=== PATIENT | female | born 1955 | race American Indian/Alaskan Native ===

== ENCOUNTER 2018-02-27 09:23 | Emergency (ER) | payer MEDICAID, OTHER ==
[2018-02-27 09:34] VITALS: BMI 27.8
[2018-02-27 09:51] VITALS: TEMP 98.3; O2SAT 100
--- NOTE | 2018-02-27 10:21 | ED PDOC ---
Arrival/HPI - General Chief Complaint: Groin Pain Time Seen by Provider: 02/27/18 09:55 Historian: Patient - History of Present Illness Narrative History of Present Illness (Text): 02/27/18 10:22 A 62 year old female, with no significant past medical history, presents to the emergency department complaining of right flank pain radiating to groin region for 1 month. 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 Patient denies any fever, chest pain, shortness of breath, change in bowels, or any other complaints at this time. Also, patient mentions having fibroid tumor removed in 2006, and had no post-op complications. PMD: Dr. Bhavin Ramirez Time/Duration: Other (1 month) Symptom Onset: Sudden Symptom Course: Unchanged Quality: Aching, Stabbing Severity Level: 3 Activities at Onset: Rest, Sleeping Context: Sitting, Home Past Medical History - Provider Review Nursing Documentation Reviewed: Yes - Travel History Have you recently traveled outside [place] w/in the past 3 mons?: No - Infectious Disease Hx of Infectious Diseases: None - Reproductive Menopause: Yes Family/Social History - Physician Review Nursing Documentation Reviewed: Yes Family/Social History: No Known Family HX Allergies/Home Meds Allergies/Adverse Reactions: Allergies Penicillins Allergy (Verified 02/28/18 08:58) RASH Home Medications: Home Meds Medication Instructions Recorded Confirmed No Known Home Med 02/28/18 02/28/18 Review of Systems - Physician Review All systems were reviewed & negative as marked: Yes - Review of Systems Constitutional: Fatigue. absent: Fevers Eyes: Normal Respiratory: Normal. absent: SOB Cardiovascular: Normal. absent: Chest Pain Gastrointestinal: Abdominal Pain, Appetite Changes Genitourinary Female: Other (brown colored urine). absent: Urine Output Changes Musculoskeletal: Back Pain, Other (right flank pain radiating down to groin region; patient also experiencing leg pain however this is due to varicosity which patient has had for a long time.) Skin: Normal Neurological: Normal Endocrine: Normal Hemo/Lymphatic: Normal Psychiatric: Normal Physical Exam Vital Signs Reviewed: Yes Vital Signs Temp Pulse Resp BP Pulse Ox 02/27/18 14:26 77 18 145/66 100 02/27/18 13:23 80 17 179/79 H 100 02/27/18 09:48 98.3 F 82 16 162/87 H 100 Temperature: Afebrile Blood Pressure: Hypertensive Pulse: Regular Respiratory Rate: Normal Appearance: Positive for: Well-Appearing Pain Distress: None Mental Status: Positive for: Alert and Oriented X 3 - Systems Exam Head: Present: Atraumatic, Normocephalic Pupils: Present: PERRL Extroacular Muscles: Present: EOMI Respiratory/Chest: Present: Clear to Auscultation, Good Air Exchange. No: Respiratory Distress, Accessory Muscle Use Cardiovascular: Present: Regular Rate and Rhythm, Normal S1, S2. No: Murmurs Abdomen: Present: Normal Bowel Sounds. No: Tenderness, Distention, Peritoneal Signs Back: Present: Normal Inspection, Other (right flank deep pain, not palpated.). No: CVA Tenderness Upper Extremity: Present: Normal Inspection. No: Cyanosis, Edema Lower Extremity: Present: Normal Inspection. No: Edema Neurological: Present: GCS=15, CN II-XII Intact, Speech Normal Skin: Present: Warm, Dry, Normal Color. No: Rashes Psychiatric: Present: Alert, Oriented x 3, Normal Insight, Normal Concentration Medical Decision Making ED Course and Treatment: 02/27/18 10:24 Impression: 62 year old female with right flank pain radiating to groin region. Physical exam shows no CVA tenderness to back, deep right flank pain not palpated. Differential Diagnosis included but are not limited to: UTI vs. Renal Stone vs organ mass Plan: -- UTI and renal stone workup -- Labs -- CT -- Reassess and disposition Progress Notes: IMPRESSION of CT: There is a large hypodense lesion in the left lobe of the liver measuring 5.9 cm AP x 4.3 cm width by 3.5 cm in height. MRI with and without contrast is recommended for evaluation of possible hepatic malignancy. 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; another CXR revealed no active dz] Case discussed with Dr Mckenzie and he evaluated her at bedside and advised need to admit however pt declined as she was not prepared to stay overnight Pt signed out AMA and will return prepared to stay next day VSS on dc and ambulated well out of the ED - Lab Interpretations Lab Results: 02/27/18 11:25 02/27/18 11:25 Lab Results 02/27/18 11:30: Urine Color Yellow, Urine Appearance Clear, Urine pH 7.5, Ur Specific [place] 1.015, Urine Protein Negative, Urine Glucose (UA) Negative, Urine Ketones Negative, Urine Blood Negative, Urine Nitrate Negative, Urine Bilirubin Negative, Urine Urobilinogen 0.2, Ur Leukocyte Esterase Negative 02/27/18 11:25: Sodium 141, Potassium 4.3, Chloride 104, Carbon Dioxide 28, Anion Gap 13, BUN 10, Creatinine 0.7, Est GFR ( Amer) > 60, Est GFR (Non- Af Amer) > 60, Random Glucose 93, Calcium 9.8, Total Bilirubin 0.5, AST 24, ALT 27, Alkaline Phosphatase 72, Total Protein 7.6, Albumin 4.1, Globulin 3.4, Albumin/Globulin Ratio 1.2 02/27/18 11:25: WBC 3.6 L, RBC 4.52, Hgb 13.6, Hct 39.1, MCV 86.5, MCH 30.1, MCHC 34.8, RDW 12.2, Plt Count 198, MPV 8.6, Gran % 47.2 L, Lymph % (Auto) 44.2 H, [place] % (Auto) 5.8, Eos % (Auto) 2.2, Baso % (Auto) 0.6, Gran # 1.70, Lymph # (Auto) 1.6, [place] # (Auto) 0.2, Eos # (Auto) 0.1, Baso # (Auto) 0.02 - RAD Interpretation Narrative RAD Interpretations (Text): 02/27/18 12:19 PROCEDURE: CT Abdomen and Pelvis without intravenous contrast HISTORY: Flank pain COMPARISON: None. TECHNIQUE: Without contrast. Contrast Dose: Radiation dose: Total exam DLP = Total exam DLP = 554 mGy-cm. This CT exam was performed using one or more of the following dose reduction techniques: Automated exposure control, adjustment of the mA and/or kV according to patient size, and/or use of iterative reconstruction technique. FINDINGS: LOWER THORAX: Unremarkable. LIVER: There is a large hypodense lesion in the left lobe of the liver measuring 5.9 cm AP x 4.3 cm with by 3.5 cm in height. Further elective evaluation with MRI with and without contrast is recommended for evaluation of possible hepatic malignancy. GALLBLADDER AND BILE DUCTS: Unremarkable. PANCREAS: Unremarkable. No gross lesion or ductal dilatation. SPLEEN: Unremarkable. ADRENALS: Unremarkable. No mass. KIDNEYS AND URETERS: Unremarkable. No hydronephrosis. No solid mass. VASCULATURE: Unremarkable. No aortic aneurysm. BOWEL: Unremarkable. No obstruction. No gross mural thickening. APPENDIX: Unremarkable. Normal appendix. PERITONEUM: Unremarkable. No free fluid. No free air. LYMPH NODES: Unremarkable. No enlarged lymph nodes. BLADDER: Unremarkable. REPRODUCTIVE: Unremarkable. BONES: No acute fracture. OTHER FINDINGS: None. IMPRESSION: There is a large hypodense lesion in the left lobe of the liver measuring 5.9 cm AP x 4.3 cm width by 3.5 cm in height. MRI with and without contrast is recommended for evaluation of possible hepatic malignancy. Radiology Orders: 02/27/18 10:38 ABD & PELVIS W/O PO OR IV CONT [CT] Stat - Scribe Statement The provider has reviewed the documentation as recorded by the Jayda Vargas Provider Scribe Attestation: All medical record entries made by the Jayda were at my direction and personally dictated by me. I have reviewed the chart and agree that the record accurately reflects my personal performance of the history, physical exam, medical decision making, and the department course for this patient. I have also personally directed, reviewed, and agree with the discharge instructions and disposition. Disposition/Present on Arrival - Present on Arrival Any Indicators Present on Arrival: Yes History of DVT/PE: No History of Uncontrolled Diabetes: No Urinary Catheter: No History of Decub. Ulcer: No History Surgical Site Infection Following: None - Disposition Have Diagnosis and Disposition been Completed?: Yes Diagnosis: Liver mass, Abdominal pain Disposition: AGAINST MEDICAL ADVICE Disposition Time: 14:06 Patient Plan: Discharge Condition: STABLE Discharge Instructions (ExitCare): Flank Pain Additional Instructions: Fanta, thank you for letting us take care of you today. Your provider was SHA Leiva. You were treated for liver lesions and mass as found on a CT examination. The emergency medical care you received today was directed at your acute symptoms. If you were prescribed any medication, please fill it and take as directed. It may take several days for your symptoms to resolve. Return to the Emergency Department if your symptoms worsen, do not improve, or if you have any other problems. Please understand that you are leaving against medical advice and should stay to have further testing and evaluations done. Please contact your doctor or call one of the physicians/clinics you have been referred to that are listed on the Patient Visit Information form that is included in your discharge packet. Bring any paperwork you were given at discharge with you along with any medications you are taking to your follow up visit. Our treatment cannot replace ongoing medical care by a primary care provider (PCP) outside of the emergency department. Thank you for allowing the [facility] team to be part of your care today. If you had an X-Ray or CT scan: A Radiologist will review the ED reading if any change in treatment is needed we will contact you. If you had a blood, urine, or wound culture: It will take several days for the results, if any change in treatment is needed we will contact you. Forms: [employer] ([place]ian)
--- NOTE | 2018-02-27 11:33 | CT ---
PROCEDURE: CT Abdomen and Pelvis without intravenous contrast HISTORY: Flank pain COMPARISON: None. TECHNIQUE: Without contrast. Contrast Dose: Radiation dose: Total exam DLP = Total exam DLP = 554 mGy-cm. This CT exam was performed using one or more of the following dose reduction techniques: Automated exposure control, adjustment of the mA and/or kV according to patient size, and/or use of iterative reconstruction technique. FINDINGS: LOWER THORAX: Unremarkable. LIVER: There is a large hypodense lesion in the left lobe of the liver measuring 5.9 cm AP x 4.3 cm with by 3.5 cm in height. Further elective evaluation with MRI with and without contrast is recommended for evaluation of possible hepatic malignancy. GALLBLADDER AND BILE DUCTS: Unremarkable. PANCREAS: Unremarkable. No gross lesion or ductal dilatation. SPLEEN: Unremarkable. ADRENALS: Unremarkable. No mass. KIDNEYS AND URETERS: Unremarkable. No hydronephrosis. No solid mass. VASCULATURE: Unremarkable. No aortic aneurysm. BOWEL: Unremarkable. No obstruction. No gross mural thickening. APPENDIX: Unremarkable. Normal appendix. PERITONEUM: Unremarkable. No free fluid. No free air. LYMPH NODES: Unremarkable. No enlarged lymph nodes. BLADDER: Unremarkable. REPRODUCTIVE: Unremarkable. BONES: No acute fracture. OTHER FINDINGS: None. IMPRESSION: There is a large hypodense lesion in the left lobe of the liver measuring 5.9 cm AP x 4.3 cm width by 3.5 cm in height. MRI with and without contrast is recommended for evaluation of possible hepatic malignancy.
[2018-02-27 11:42] LABS: BASO # 0.02 K/mm3 (0.0-2.0); BASO % 0.6 % (0.0-3.0); EOS # 0.1 (0.0-0.7); EOS % 2.2 % (1.5-5.0); GRAN # 1.7 (1.4-6.5); GRAN % 47.2 % (50.0-68.0); HEMOGLOBIN 13.6 g/dL (12.0-16.0); LYMPH # 1.6 (1.2-3.4); LYMPH % 44.2 % (22.0-35.0); MEAN CELL VOLUME 86.5 fl (80.0-105.0); MEAN CORPUSCULAR HEMOGLOBIN 30.1 pg (25.0-35.0); MEAN CORPUSCULAR HGB CONC 34.8 g/dl (31.0-37.0); MEAN PLATELET VOLUME 8.6 fl (7.0-11.0); MONO # 0.2 (0.1-0.6); MONO % 5.8 % (1.0-6.0); RBC 4.52 10^6/uL (3.5-6.1); RED CELL DISTRIBUTION WIDTH 12.2 % (11.5-14.5); WHITE BLOOD COUNT 3.6 10^3/ul (4.5-11.0)
[2018-02-27 11:43] LABS: PH,URINE 7.5 (4.7-8.0); URINE APPEARANCE CLEAR (CLEAR); URINE BILIRUBIN NEGATIVE (NEGATIVE); URINE BLOOD NEGATIVE (NEGATIVE); URINE COLOR YELLOW (YELLOW); URINE GLUCOSE (UA) NEGATIVE (NEGATIVE); URINE LEUKOCYTE ESTERASE NEGATIVE Leu/uL (NEGATIVE); URINE PROTEIN NEGATIVE mg/dL (<30 mg/dL); URINE UROBILINOGEN 0.2 E.U./dL (<1 E.U./dL)
[2018-02-27 11:52] LABS: ALB/GLOB RATIO 1.2 (1.1-1.8); ALBUMIN 4.1 g/dL (3.0-4.8); ALT/SGPT 27 U/L (7-56); AST/SGOT 24 U/L (14-36); BLOOD UREA NITROGEN 10 mg/dL (7-21); CALCIUM 9.8 mg/dL (8.4-10.5); GFR AFRICAN-AMERICAN > 60; GFR NON-AFRICAN AMERICAN > 60
[2018-02-27 14:26] VITALS: BP 145/66; PULSE 77; RESP 18
== END 2018-02-27 14:50 | disposition left against medical advice (07) ==
LOC: ED 09:23
DX: R10.30 Lower abdominal pain, unspecified (principal); R16.0 Hepatomegaly, not elsewhere classified

== ENCOUNTER 2018-02-28 08:41 | Emergency (ER) | payer MEDICAID ==
[2018-02-28 08:53] VITALS: BMI 27.4
[2018-02-28 08:58] VITALS: TEMP 98.7
--- NOTE | 2018-02-28 10:01 | ED PDOC ---
Arrival/HPI - General Chief Complaint: Medical Clearance Time Seen by Provider: 02/28/18 09:16 Historian: Patient - History of Present Illness Narrative History of Present Illness (Text): 02/28/18 09:56 Pt is a 62 yr old female who was seen in the Ed yesterday for right flank pain for the past 3-4 weeks with a worsening of pain over the past few days. Pt was worked up with labs and imaging and a lesion was found on the liver and informed pt that she would need to be admitted for further testing and a heme/ onc consult. Pt was not prepared to stay overnight so left AMA and stated she would return the next day. Denies any new complaints since last visit. Time/Duration: > month Symptom Onset: Gradual Symptom Course: Unchanged Quality: Aching, Pressure Severity Level: 2 Activities at Onset: Rest, Sleeping Context: Home Past Medical History - Provider Review Nursing Documentation Reviewed: Yes - Travel History Have you recently traveled outside [place] w/in the past 3 mons?: No - Infectious Disease Hx of Infectious Diseases: None - Reproductive Menopause: Yes - Cardiac Hx Hypertension: Yes - Gastrointestinal Hx Gastrointestinal Disorders: Yes Other/Comment: liver mass - Psychiatric Hx Substance Use: No - Surgical History Hx Hysterectomy: Yes (partial hysterectomy) - Anesthesia Hx Anesthesia: Yes Hx Anesthesia Reactions: No Hx Malignant Hyperthermia: No Family/Social History - Physician Review Nursing Documentation Reviewed: Yes Family/Social History: Unknown Family HX Smoking Status: Never Smoked Hx Alcohol Use: No Hx Substance Use: No Allergies/Home Meds Allergies/Adverse Reactions: Allergies Penicillins Allergy (Verified 02/28/18 08:58) RASH Home Medications: Home Meds Medication Instructions Recorded Confirmed No Known Home Med 02/28/18 02/28/18 Review of Systems - Review of Systems Constitutional: Normal Eyes: Normal ENT: Normal Respiratory: Normal Cardiovascular: Normal Gastrointestinal: Abdominal Pain Genitourinary Female: Normal Musculoskeletal: Normal, Back Pain Skin: Normal Neurological: Normal Endocrine: Normal Hemo/Lymphatic: Normal Psychiatric: Normal Physical Exam Vital Signs Reviewed: Yes Vital Signs Temp Pulse Resp BP Pulse Ox 02/28/18 09:55 72 17 145/82 99 02/28/18 08:54 98.7 F 78 18 154/87 H 100 Temperature: Afebrile Blood Pressure: Normal Pulse: Regular Respiratory Rate: Normal Appearance: Positive for: Well-Appearing, Non-Toxic, Comfortable Pain Distress: Mild Mental Status: Positive for: Alert and Oriented X 3 - Systems Exam Head: Present: Atraumatic, Normocephalic Pupils: Present: PERRL Extroacular Muscles: Present: EOMI Conjunctiva: Present: Normal Mouth: Present: Moist Mucous Membranes Neck: Present: Normal Range of Motion Respiratory/Chest: Present: Clear to Auscultation, Good Air Exchange. No: Respiratory Distress, Accessory Muscle Use Cardiovascular: Present: Regular Rate and Rhythm, Normal S1, S2. No: Murmurs Abdomen: Present: Tenderness (RUQ), Normal Bowel Sounds. No: Distention, Peritoneal Signs Back: Present: Normal Inspection Upper Extremity: Present: Normal Inspection. No: Cyanosis, Edema Lower Extremity: Present: Normal Inspection. No: Edema Neurological: Present: GCS=15, CN II-XII Intact, Speech Normal Skin: Present: Warm, Dry, Normal Color. No: Rashes Psychiatric: Present: Alert, Oriented x 3, Normal Insight, Normal Concentration Medical Decision Making ED Course and Treatment: 02/28/18 10:01 Impression Pt is a 62 yr old female who was seen in the Ed yesterday for right flank pain for the past 3 weeks with a worsening of pain over the past few days. Plan Discussed the plan with pt and indicated that she thought she would be here only for testing, not admitted. Pt again stated she was not prepared and wanted to leave AMA VSS and dispo home Disposition/Present on Arrival - Present on Arrival Any Indicators Present on Arrival: Yes History of DVT/PE: No History of Uncontrolled Diabetes: No Urinary Catheter: No History of Decub. Ulcer: No History Surgical Site Infection Following: None - Disposition Have Diagnosis and Disposition been Completed?: Yes Diagnosis: Liver mass Disposition: AGAINST MEDICAL ADVICE Disposition Time: 10:05 Patient Plan: Other (AMA) Condition: GOOD Referrals: Bhavin Ramirez MD [Primary Care Provider] - Follow up with primary Forms: [employer] ([place])
[2018-02-28 10:08] VITALS: BP 145/82; PULSE 72; RESP 17; O2SAT 99
== END 2018-02-28 10:07 | disposition left against medical advice (07) ==
LOC: ED 08:41
DX: R16.0 Hepatomegaly, not elsewhere classified (principal); I10 Essential (primary) hypertension